=== PATIENT | male | born 1940 | race Caucasian/White ===

== ENCOUNTER → 2016-06-24 | Outpatient (CLI) | payer MEDICARE ==
[~2016-06-24] MED LIST: ASA325 MG PO; ASMANEX1 INH IH; DUREZOL5 ML OD; LEXAPRO DPS10 MG PO; MONTELUKAST SOD10 MG PO; NORVASC5 MG PO; OXYGEN NS; PRESERVISION A1 EAC1 PO; PROAIR RESPICL90 MCG IH; PROLENSA3 ML OD; VIGAMOX3 ML; ZESTORETIC 20/21 TAB PO; ZOCOR80 MG PO; ZYLOPRIM-DPS300 MG PO
== END | disposition home or self-care (01) ==
LOC: RAD.S 16:56
DX: S09.90XA Unspecified injury of head, initial encounter (principal); G31.9 Degenerative disease of nervous system, unspecified; H53.8 Other visual disturbances; R42 Dizziness and giddiness